=== PATIENT | female | born 1960 | race African-American/Black ===

== ENCOUNTER 2021-01-19 15:14 | Inpatient (IN) | payer OTHER ==
[~2021-01-19] VITALS: Ht 175.3 cm; Wt 57.7 kg
[~2021-01-19 15:14] MED LIST: GLYB2.5T4 PO; PRAV80TA19 PO
[2021-01-19] MEDS ORDERED: FOLIC ACID 1 MG, THIAMINE HCL 100 MG, MVI, ADULT NO.1 10 ML in DEXTROSE 5% WATER 1,000 ML IV ONE (16:00)
[2021-01-19] MEDS ORDERED: MULTIVITAMINS,THER W-MINERALS TABLET PO STA (16:10)
[2021-01-19] MEDS ORDERED: FOLIC ACID 1 MG, THIAMINE HCL 100 MG in DEXTROSE 5% WATER 1,000 ML IV ONE (16:15)
[2021-01-19 16:47] LABS: BASOPHILS % 0.8 % (0.0-2.0); EOSINOPHILS % 0.4 % (0.0-5.0); HEMATOCRIT. 36.6 % (36.0-48.0); HEMOGLOBIN. 12.4 g/dL (12.0-16.0); LYMPHOCYTES % 25.4 % (20.0-50.0); MEAN CORPUSCULAR HEMOGLOBIN 37.3 pg (28.0-32.0); MEAN CORPUSCULAR VOLUME 109.4 fL (81.0-99.0); MEAN PLATELET VOLUME 9.7 fl (7.4-10.4); MONOCYTES % 8.3 % (2.0-8.0); NEUTROPHILS % 65.1 % (40.0-76.0); PLATELET 158 x1000/uL (130-400); RED BLOOD CELL COUNT 3.34 mill/uL (4.2-5.4); RED CELL DISTRIBUTION WIDTH 13.3 % (11.6-14.6)
[2021-01-19 16:52] LABS: CHLORIDE 106 mEq/L (98-107)
[2021-01-19 16:54] LABS: INR 1.1; PROTHROMBIN TIME 11.6 sec (9.6-11.0)
[2021-01-19] MEDS ORDERED: SODIUM CHLORIDE 0.9% 1,000 ML IV ONE ×2 (17:15→21:15)
[2021-01-19 19:48] LABS: CLARITY URINE CLEAR (CLEAR); COLOR URINE YELLOW (YELLOW); KETONES URINE NEGATIVE (NEGATIVE); LEUKOCYTE ESTERASE URINE 1+ (NEGATIVE); NITRITE URINE NEGATIVE (NEGATIVE); OCCULT BLOOD URINE NEGATIVE (NEGATIVE); PROTEIN URINE NEGATIVE (NEGATIVE); SPECIFIC GRAVITY URINE 1.008 (1.005-1.030)
[2021-01-19] MEDS ORDERED: ZOLPIDEM TARTRATE 5MG TABLET PO PRN (23:45)
[2021-01-19] MEDS ORDERED: ONDANSETRON HCL 4MG/2ML INJ IV PRN (23:45)
[2021-01-19] MEDS ORDERED: LORAZEPAM 2MG/ML CPJ IV PRN (23:45)
[2021-01-19] MEDS ORDERED: ACETAMINOPHEN 325MG TABLET PO PRN ×2 (23:45)
[2021-01-19] MEDS ORDERED: MAGNESIUM/ALUMINUM HYDROXIDE/SIMETHICONE 30ML UDC PO PRN (23:45)
[2021-01-19] MEDS ORDERED: SODIUM CHLORIDE 0.9% 1,000 ML IV SCH (23:45)
[2021-01-19] MEDS ORDERED: DEXTROSE 50% WATER 50ML SYRINGE IV PRN (23:45)
[2021-01-20] MEDS ORDERED: LORAZEPAM 2MG/ML CPJ IV PRN
[2021-01-20] MEDS ORDERED: CEFTRIAXONE 1 G PREMIX 50 ML IV SCH (01:00)
[2021-01-20] MEDS ORDERED: ENOXAPARIN 40MG/0.4ML SYR SUBCUT SCH (02:00)
[2021-01-20 02:30] VITALS: BP 115/75
[2021-01-20] MEDS ORDERED: FOLIC ACID 1 MG, THIAMINE HCL 100 MG in SODIUM CHLORIDE 0.9% 1,000 ML IV SCH ×2 (03:00→08:00)
[2021-01-20] MEDS ORDERED: MULTIVITAMINS,THER W-MINERALS TABLET PO NR (03:00)
[2021-01-20 04:00] VITALS: BP 90/59
[2021-01-20 06:49] LABS: BASOPHILS % 0.9 % (0.0-2.0); EOSINOPHILS % 0.8 % (0.0-5.0); HEMATOCRIT. 32.7 % (36.0-48.0); HEMOGLOBIN. 11.3 g/dL (12.0-16.0); LYMPHOCYTES % 25.4 % (20.0-50.0); MEAN CORPUSCULAR HEMOGLOBIN 37.4 pg (28.0-32.0); MEAN CORPUSCULAR VOLUME 108.3 fL (81.0-99.0); MEAN PLATELET VOLUME 10.2 fl (7.4-10.4); MONOCYTES % 9.6 % (2.0-8.0); NEUTROPHILS % 63.3 % (40.0-76.0); PLATELET 138 x1000/uL (130-400); RED BLOOD CELL COUNT 3.02 mill/uL (4.2-5.4); RED CELL DISTRIBUTION WIDTH 13.1 % (11.6-14.6)
[2021-01-20] MEDS: BLOOD SUGAR DIAGNOSTIC STRIP TEST SCH ×4 (07:22→21:11)
[2021-01-20] MEDS: INSULIN LISPRO 100 UNITS/ML SUBCUT SCH ×4 (07:22→21:00)
[2021-01-20 07:44] LABS: CHLORIDE 109 mEq/L (98-107)
[2021-01-20 08:00] VITALS: BP 89/48
[2021-01-20 08:01] LABS: PHOSPHORUS 2.9 mg/dL (2.5-4.9)
[2021-01-20] MEDS: FAMOTIDINE 20MG/2ML VIAL IV SCH ×2 (09:38→21:19)
[2021-01-20 12:00] VITALS: BP 102/63
[2021-01-20 16:32] VITALS: BP 100/62
[2021-01-20 20:00] VITALS: BP 113/65
[2021-01-20 21:09] LABS: FOLIC ACID (FOLATE) SERUM 13.9 ng/mL (>5.38)
[2021-01-20] MEDS: CEFTRIAXONE 1,000 MG in DEXTROSE 5% WATER 50 ML IV SCH (21:18)
[2021-01-21] VITALS: BP 118/67
[2021-01-21 04:00] VITALS: BP 102/58
[2021-01-21] MEDS: BLOOD SUGAR DIAGNOSTIC STRIP TEST SCH ×4 (07:03→21:00)
[2021-01-21] MEDS: INSULIN LISPRO 100 UNITS/ML SUBCUT SCH ×4 (07:03→21:00)
[2021-01-21 08:00] VITALS: BP 107/62
[2021-01-21] MEDS: ENOXAPARIN 30MG/0.3ML SYR SUBCUT SCH (08:42)
[2021-01-21] MEDS: FAMOTIDINE 20MG/2ML VIAL IV SCH ×2 (08:42→22:53)
[2021-01-21 12:00] VITALS: BP 106/72
[2021-01-21 16:00] VITALS: BP 105/72
[2021-01-21 20:00] VITALS: BP 110/68
[2021-01-21] MEDS: CEFTRIAXONE 1,000 MG in DEXTROSE 5% WATER 50 ML IV SCH (22:43)
[2021-01-22] VITALS (7 sets, daily range): BP systolic 92–112; BP diastolic 53–65
[2021-01-22] MEDS: BLOOD SUGAR DIAGNOSTIC STRIP TEST SCH ×4 (06:30→21:05)
[2021-01-22] MEDS: INSULIN LISPRO 100 UNITS/ML SUBCUT SCH ×4 (06:30→21:00)
[2021-01-22] MEDS: ENOXAPARIN 30MG/0.3ML SYR SUBCUT SCH (08:23)
[2021-01-22] MEDS: FAMOTIDINE 20MG/2ML VIAL IV SCH ×2 (08:23→21:04)
[2021-01-22] MEDS: CEFTRIAXONE 1,000 MG in DEXTROSE 5% WATER 50 ML IV SCH (21:04)
[2021-01-23] VITALS: BP 102/61
[2021-01-23 04:00] VITALS: BP 109/62
[2021-01-23] MEDS: BLOOD SUGAR DIAGNOSTIC STRIP TEST SCH (06:56)
[2021-01-23] MEDS: INSULIN LISPRO 100 UNITS/ML SUBCUT SCH (06:57)
== END 2021-01-23 09:25 | disposition left against medical advice (07) | DRG 70 ==
LOC: ER 15:14 → 7WST 21:41 → EDBEDREQ 21:46 → EDBEDREQSVC 22:05 → EDBEDREQTM 22:05 → ENRESERV 23:37 → 7WST 01-20 04:52 → 5WST 01-20 23:16
PROVIDERS: ADMIT Internal Medicine; ATTEND Internal Medicine
DX: G93.41 Metabolic encephalopathy (principal); E43 Unspecified severe protein-calorie malnutrition; E87.2 Acidosis; F10.239 Alcohol dependence with withdrawal, unspecified; Z68.1 Body mass index [BMI] 19.9 or less, adult; F17.200 Nicotine dependence, unspecified, uncomplicated; R26.2 Difficulty in walking, not elsewhere classified; E11.40 Type 2 diabetes mellitus with diabetic neuropathy, unspecified; Z53.29 Procedure and treatment not carried out because of patient's decision for other reasons; Z20.822 Contact with and (suspected) exposure to COVID-19; Y90.9 Presence of alcohol in blood, level not specified; Z82.49 Family history of ischemic heart disease and other diseases of the circulatory system; Z88.5 Allergy status to narcotic agent
CPT/HCPCS: 36415; 71045; 80053; 81003; 82607; 82746; 82962; 83036; 83605; 83735; 84100; 84145; 84443; 84484; 85025; 93005; 96365; 97162; 97530; 99285; C1893; J0696; J1650; J3411; J3490; J7030; J7060; J7070; U0003